=== PATIENT | male | born 1930 | race Caucasian/White ===

== ENCOUNTER 2020-07-26 17:11 | Emergency (ER) | payer MEDICARE, OTHER ==
[~2020-07-26 17:11] MED LIST: 8 HOUR650 MG PO; ASPIRIN EC81 MG PO; DAILY VALUE1 EACH PO; FENOFIBRATE200 MG PO; FISH OIL 1,0001 EAC3 PO; IBUPROFEN800 MG PO; K-DUR20 MEQ PO; LASIX20 MG PO; LIPITOR40 MG PO; LISINOPRIL40 MG PO; NORVASC5 MG PO; PLAVIX75 MG PO; PREVALITE4 GM PO; PRILOSEC20 MG PO; ROCEPHIN2 GM IV; TOPROL XL 50 MG50 MG PO
== END 2020-07-26 18:05 | disposition home or self-care (01) ==
LOC: FER 17:11
DX: L76.22 Postprocedural hemorrhage of skin and subcutaneous tissue following other procedure (principal)

== ENCOUNTER 2020-09-10 12:21 | Emergency (ER) | payer MEDICARE, OTHER ==
[2020-09-10 12:54] LABS: BASOPHIL 0.2 % (0-2); EOSINOPHIL 0.2 % (0-7); HCT 32.4 % (42.0-52.0); HGB 10.4 g/dl (13.2-18.0); MCH 32.2 pg (25.0-31.0); MCHC 32.1 g/dL (32.0-36.0); MCV 100.3 fL (78.0-100.0); MONOCYTE 3.8 % (0-12); MPV 10.6 fL (6.0-9.5); NEUTROPHIL 88.6 % (41-80); NRBC 0; PLT 91 K/uL (150-400); RBC 3.23 M/uL (4.70-6.00); RDW 14.3 % (11.5-14.0); WBC 4.7 K/uL (4.0-10.5)
[2020-09-10 13:07] LABS: BILIRUBIN - TOTAL 0.8 mg/dL (0.2-1.0); BUN/CREAT RATIO (CALC) 32.9 RATIO; CREATININE 1.73 mg/dL (0.67-1.17); GLOBULIN (CALCULATION) 4.3 g/dL; POTASSIUM 4.2 mmol/L (3.5-5.1); TOTAL PROTEIN 7.3 g/dL (6.4-8.2)
[2020-09-10 14:42] LABS: CORONAVIRUS 2019 SARS-COV-2 NEGATIVE (NEGATIVE); INFLUENZA A NAA NEGATIVE (NEGATIVE)
--- NOTE | 2020-09-11 09:53 | NUR ---
RECEIVED INFORMATION FROM OLIVIER, FAN MAIL [employer]OR, TO CONTACT MR. MORAN'S SISTER REGARDING POSSIBLE SERVICES. PER OLIVIER, PT GAVE HER PERMISSION TO SPEAK WITH HIS SISTER. TC TO MR. MORAN'S SISTER, SARAH COLON, . SHE ADVISED ME THAT SHE TOOK MR. MORAN HOME WITH HER AND HER BROTHER IS ALSO AT HER HOME HELPING WITH MR. MORAN. SHE STATED THAT PT IS DOING BETTER AND AT THIS TIME THEY DO NOT NEED ANY ASSISTANCE. ADVISED HER POSSIBLE , SITTER SERVICES, NURSING FACILITIES. SHE STATED AT THIS TIME THAT WOULD NOT BE NECESSARY, THAT MR. MORAN JUST NEEDED TO GET OVER THE VIRUS. LEFT HER MY PHONE NUMBER IN CASE SHE HAS QUESTIONS OR REQUIRES ANY ADDITIONAL INFORMATION.
== END 2020-09-10 17:56 | disposition home or self-care (01) ==
LOC: FER 12:21
PROVIDERS: Emergency Medicine; Nurse Practitioner Family
DX: R19.7 Diarrhea, unspecified (principal); Z20.822 Contact with and (suspected) exposure to COVID-19; Z88.0 Allergy status to penicillin
CPT/HCPCS: 36415; 80053; 85025; J2405; J7030; U0002